=== PATIENT | male | born 1975 | race Caucasian/White ===

== ENCOUNTER 2017-05-10 05:34 | Emergency (ER) | payer SELFPAY ==
[2017-05-10] MEDS ORDERED: DILAUDID ONE (05:36)
[2017-05-10] MEDS ORDERED: ZOFRAN ONE (05:36)
[2017-05-10] MEDS ORDERED: ZOFRAN IV ONE (05:54)
[2017-05-10] MEDS ORDERED: DILAUDID IV ONE ×3 (05:54→09:01)
[2017-05-10] MEDS ORDERED: ceFAZolin 2 GM in NACL 0.9% 100 ML IV ONE (05:54)
[2017-05-10] MEDS ORDERED: NACL 0.9% 1000 ML 1,000 ML IV ONE (06:28)
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
[2017-05-10 06:59] LABS: Basophils % (Auto) 0.3 % (0.0-1.8); Eosinophils % (Auto) 0.7 % (0.0-4.3); Hematocrit 39.7 % (35.5-45.6); Hemoglobin 13.2 gm/dl (11.8-15.2); Mean Corpuscular HGB Conc 33 % (32-34); Mean Corpuscular Hemoglobin 32 pg (28-32); Mean Corpuscular Volume 96 fl (84-94); Platelet Count 222 K/mm3 (140-440); Red Blood Count 4.14 M/mm3 (3.65-5.03); Red Cell Distribution Width 13.9 % (13.2-15.2); White Blood Count 11.5 K/mm3 (4.5-11.0)
[2017-05-10 07:15] LABS: INR 1.1 (0.87-1.13); Partial Thromboplastin Time 29.2 Sec. (24.2-36.6)
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
[2017-05-10 07:22] LABS: Creatine Kinase MB 1.3 ng/mL (0.0-4.0)
[2017-05-10 07:23] LABS: Alanine Aminotransferase 11 units/L (7-56); Albumin 4.1 g/dL (3.9-5); Albumin/Globulin Ratio 1.2 %; Alkaline Phosphatase 85 units/L (35-129); Anion Gap 17 mmol/L; BUN/Creatinine Ratio 21.25; Blood Urea Nitrogen 17 mg/dL (9-20); Calcium 9.2 mg/dL (8.4-10.2); Carbon Dioxide 25 mmol/L (22-30); Chloride 100.7 mmol/L (98-107); Creatine Kinase 128 units/L (55-170); Glucose 88 mg/dL (75-100); Potassium 3.9 mmol/L (3.6-5.0); Sodium 139 mmol/L (137-145); Total Protein 7.4 g/dL (6.3-8.2)
[2017-05-10 07:25] LABS: Bilirubin,Direct < 0.2 mg/dL (0-0.2); Bilirubin,Indirect 0.1 mg/dL
[2017-05-10] MEDS ORDERED: NACL 0.9% 500 ML IR ONE (07:37)
[2017-05-10] MEDS ORDERED: TRIPLE ANTIBIOTIC TP ONE ×2 (07:39→08:03)
[2017-05-10] MEDS ORDERED: NACL 0.9% IR ONE (08:03)
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
[2017-05-10 09:09] VITALS: BP 140/57
[2017-05-10 09:57] LABS: Urine Drugs of Abuse Note Disclamer
[2017-05-10 10:11] LABS: Bacteria,Urine 1+ /HPF (Negative); Bilirubin,Urine NEG (Negative); Blood,Urine NEG (Negative); Ketones,Urine TR mg/dL (Negative); Leukocyte Esterase,Urine NEG (Negative); Nitrite,Urine NEG (Negative); Protein,Urine <15 mg/dL mg/dL (Negative); Urobilinogen,Urine < 2.0 mg/dL (<2.0); WBC,Urine < 1.0 /HPF (0.0-6.0)
== END 2017-05-10 09:42 | disposition home or self-care (01) ==
LOC: ED 05:34
DX: S82.54XA Nondisplaced fracture of medial malleolus of right tibia, initial encounter for closed fracture (principal); S80.01XA Contusion of right knee, initial encounter; F12.10 Cannabis abuse, uncomplicated; R46.89 Other symptoms and signs involving appearance and behavior; Z79.899 Other long term (current) drug therapy; V89.2XXA Person injured in unspecified motor-vehicle accident, traffic, initial encounter; Y93.89 Activity, other specified; Y99.8 Other external cause status; Y92.410 Unspecified street and highway as the place of occurrence of the external cause
CPT/HCPCS: 29515; 36415; 71010; 72170; 73552; 73590; 73620; 80048; 80074; 80307; 81001; 82550; 82553; 83735; 84484; 85025; 85610; 85730; 86850; 86900; 86901; 93005; 93010; 96365; 96375; 96376; 99284; G0480; J0690; J1170; J2405; J7030; 80320; A6250

== ENCOUNTER 2020-08-15 12:55 | Emergency (ER) | payer SELFPAY ==
[2020-08-15 13:13] VITALS: BP 121/65
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
== END 2020-08-15 14:48 | disposition home or self-care (01) ==
LOC: ED 12:55
DX: S82.54XD Nondisplaced fracture of medial malleolus of right tibia, subsequent encounter for closed fracture with routine healing (principal); F12.90 Cannabis use, unspecified, uncomplicated; Z79.899 Other long term (current) drug therapy; X58.XXXD Exposure to other specified factors, subsequent encounter